=== PATIENT | female | born 1955 | race Hispanic/Latino ===

== ENCOUNTER 2024-11-09 13:55 | Emergency (ER) | payer MEDICARE ==
[~2024-11-09] VITALS: Ht 152.4 cm; Wt 58.5 kg
[2024-11-09 14:35] VITALS: TEMP 97.6
[2024-11-09 15:36] LABS: BASOPHILS # (AUTO) 0.1 (0.0-0.1); BASOPHILS % 0.6 % (0.0-1.0); EOSINOPHILS # (AUTO) 0.2 (0.0-0.4); EOSINOPHILS % 2.9 % (0.0-6.0); HEMATOCRIT 42.1 % (34.2-44.1); LYMPHOCYTES # (AUTO) 1.9 (1.0-3.2); LYMPHOCYTES % 23.3 % (18.0-39.1); MEAN CORPUSCULAR HEMOGLOBIN 31.2 pg (28-32); MEAN CORPUSCULAR HGB CONC 30.9 g/dL (31-35); MONOCYTES # (AUTO) 0.5 (0.2-0.8); MONOCYTES % 6.4 % (4.4-11.3); NEUTROPHILS # (AUTO) 5.3 (2.1-6.9); NEUTROPHILS % 66.6 % (38.7-80.0); PLATELET COUNT 254 x10e3/uL (140-360); RED BLOOD COUNT 4.17 x10e6/uL (3.6-5.1); RED CELL DISTRIBUTION WIDTH 12.9 % (11.7-14.4); WHITE BLOOD COUNT 8.01 x10e3/uL (4.8-10.8)
[2024-11-09 15:42] LABS: BACTERIA,URINE FEW /HPF; BILIRUBIN,URINE NEGATIVE (NEGATIVE); CLARITY,URINE HAZY (CLEAR); COLOR,URINE YELLOW (YELLOW); EPITHELIAL CELLS,URINE MODERATE /LPF; GLUCOSE, URINE NEGATIVE (NEGATIVE); KETONES,URINE NEGATIVE (NEGATIVE); LEUKOCYTE ESTERASE ,URINE SMALL (NEGATIVE); NITRITE,URINE NEGATIVE (NEGATIVE); PH,URINE 7.5 (5 - 7); PROTEIN,URINE DIPSTICK NEGATIVE (NEGATIVE); URINE UROBILINOGEN 0.2 mg/dL (0.2 - 1)
[2024-11-09 15:59] LABS: ANION GAP 16.9 mmol/L (8-16); CALCIUM 9.9 mg/dL (8.4-10.2); CREATININE, SERUM 0.79 mg/dL (0.57-1.11); POTASSIUM 3.9 mmol/L (3.5-5.1)
[2024-11-09 16:30] VITALS: PULSE 82; RESP 14; O2SAT 98
[2024-11-09] MEDS ORDERED: CEFDINIR300 MG PO (16:30)
== END 2024-11-09 16:45 | disposition home or self-care (01) ==
LOC: ER 14:28
DX: R31.9 Hematuria, unspecified (principal)
CPT/HCPCS: 36415; 80048; 81001; 85025; 87086; 99283

== ENCOUNTER 2024-12-25 21:00 | Emergency (ER) | payer MEDICARE ==
[~2024-12-25] VITALS: Ht 165.1 cm; Wt 61.2 kg
[~2024-12-25 21:00] MED LIST: CEFDINIR300 MG PO
[2024-12-25 21:43] VITALS: TEMP 98.2
[2024-12-25 22:28] LABS: BASOPHILS % 0.6 % (0.0-1.0); EOSINOPHILS # (AUTO) 0.2 (0.0-0.4); HEMATOCRIT 36.3 % (34.2-44.1); HEMOGLOBIN 12.1 g/dL (12.0-16.0); LYMPHOCYTES % 29.2 % (18.0-39.1); MEAN CORPUSCULAR HEMOGLOBIN 31.3 pg (28-32); MEAN CORPUSCULAR HGB CONC 33.3 g/dL (31-35); MONOCYTES # (AUTO) 0.7 (0.2-0.8); MONOCYTES % 9.9 % (4.4-11.3); NEUTROPHILS % 57.2 % (38.7-80.0); PLATELET COUNT 246 x10e3/uL (140-360); RED BLOOD COUNT 3.86 x10e6/uL (3.6-5.1); RED CELL DISTRIBUTION WIDTH 13.2 % (11.7-14.4); WHITE BLOOD COUNT 6.95 x10e3/uL (4.8-10.8)
[2024-12-25 22:36] LABS: BILIRUBIN,URINE NEGATIVE (NEGATIVE); CLARITY,URINE CLEAR (CLEAR); COLOR,URINE YELLOW (YELLOW); GLUCOSE, URINE NEGATIVE (NEGATIVE); KETONES,URINE NEGATIVE (NEGATIVE); LEUKOCYTE ESTERASE ,URINE NEGATIVE (NEGATIVE); NITRITE,URINE NEGATIVE (NEGATIVE); PH,URINE 7 (5 - 7); PROTEIN,URINE DIPSTICK NEGATIVE (NEGATIVE); URINE UROBILINOGEN 0.2 mg/dL (0.2 - 1)
[2024-12-25 22:49] LABS: ALANINE AMINOTRANSFERASE 16 IU/L (0-55); ALBUMIN 4.3 g/dL (3.5-5.0); ALBUMIN/GLOBULIN RATIO 1.3 (0.8-2.0); ALKALINE PHOSPHATASE 70 IU/L (40-150); ANION GAP 14.3 mmol/L (8-16); BILIRUBIN,TOTAL 0.4 mg/dL (0.2-1.2); BLOOD UREA NITROGEN 16 mg/dL (7-26); BUN/CREATININE RATIO 19 (6-25); CALCIUM 9.7 mg/dL (8.4-10.2); CARBON DIOXIDE 25 mmol/L (22-29); CHLORIDE 106 mmol/L (98-107); CREATINE KINASE 138 IU/L (29-168); CREATININE, SERUM 0.85 mg/dL (0.57-1.11); EST GLOMERULAR FILTRATION RATE 75 ML/MIN (>=60); GLUCOSE 98 mg/dL (74-118); LIPASE 62 U/L (8-78); POTASSIUM 4.3 mmol/L (3.5-5.1); SODIUM 141 mmol/L (136-145); TOTAL PROTEIN 7.6 g/dL (6.5-8.1)
[2024-12-25 22:58] LABS: TROPONIN I < 0.001 ng/mL (0-0.300)
[2024-12-25 23:05] LABS: EPITHELIAL CELLS,URINE FEW /LPF; RBC,URINE 0-5 /HPF (0-5); WBC,URINE (MAN) 0-5 /HPF (0-5)
[2024-12-25 23:06] LABS: BACTERIA,URINE MODERATE /HPF
[2024-12-25] MEDS: SODIUM CHLORIDE 0.9% 1000ML 1,000 ML IV STA (23:46)
[2024-12-26 02:15] VITALS: PULSE 75; RESP 16; O2SAT 98
[2024-12-26] MEDS ORDERED: IOPAMIDOL 370 MG/ML 100 ML INFUS..BTL INJ ONE (05:38)
== END 2024-12-26 02:35 | disposition home or self-care (01) ==
LOC: ER 21:06
DX: N93.8 Other specified abnormal uterine and vaginal bleeding (principal); R33.9 Retention of urine, unspecified; N81.4 Uterovaginal prolapse, unspecified; R10.30 Lower abdominal pain, unspecified; R53.1 Weakness
CPT/HCPCS: 36415; 51702; 74177; 80053; 81001; 82550; 83690; 84484; 85025; 93005; 99284; Q9967; 51700

== ENCOUNTER 2024-12-26 22:23 | Emergency (ER) | payer MEDICARE ==
[~2024-12-26] VITALS: Ht 165.1 cm; Wt 61.2 kg
[2024-12-26 22:32] VITALS: PULSE 89; RESP 19; TEMP 97.9
[2024-12-26 23:20] VITALS: BP 155/71; O2SAT 98
== END 2024-12-26 23:00 | disposition home or self-care (01) ==
LOC: ER 22:26
DX: R33.9 Retention of urine, unspecified (principal); N81.4 Uterovaginal prolapse, unspecified
CPT/HCPCS: 99283